=== PATIENT | male | born 1980 | race Asian ===

== ENCOUNTER 2016-08-13 10:09 | Emergency (ER) | payer SELFPAY ==
[~2016-08-13] VITALS: Ht 170.2 cm; Wt 77.1 kg
[2016-08-13 10:09] VITALS: BP 144/86; PULSE 81; RESP 14; TEMP 98; O2SAT 99
--- NOTE | 2016-08-13 10:09 | NUR ---
Placed on cardiac monitor technician, blood pressure machine and pulse oximeter. To gown for exam. Side rails up.
--- NOTE | 2016-08-13 10:09 | NUR ---
ER at bedside examining patient.
--- NOTE | 2016-08-13 10:09 | NUR ---
Patient to ER bed 7 to gown for evaluation. Side rails up. Report given to GRACIA Bunch.
--- NOTE | 2016-08-13 10:10 | NUR ---
BIB BLS,c/o dizzy,headache,active vomiting since this morning. pt A$&O X4, Vomting with clear liquid. diphoretic. no resp distress.
[2016-08-13] MEDS ORDERED: NACL 0.9% 1,000 ML IV ONE ×3 (10:18→12:00)
--- NOTE | 2016-08-13 10:23 | NUR ---
# 20 gauge angiocath placed to lac. Use of asceptic technique. Opsite placed over site. Blood return noted. Blood for lab drawn from site. Flushed with 10 cc of normal saline. No evidence of infiltration noted. Patient tolerated well.
[2016-08-13] MEDS ORDERED: KETOROLAC TROMETHAMINE 30 MG VIAL IVP ONE (10:30)
[2016-08-13] MEDS ORDERED: METOCLOPRAMIDE HCL 10 MG/2 ML VIAL IVP ONE (10:30)
[2016-08-13] MEDS ORDERED: ONDANSETRON HCL 4 MG/2 ML VIAL IVP ONE (10:30)
[2016-08-13] MEDS ORDERED: PROCHLORPERAZINE EDISYLATE 10 MG/2 ML VIAL IVP ONE (10:30)
[2016-08-13] MEDS ORDERED: PROMETHAZINE HCL 25 MG/ML AMP IM ONE (10:30)
[2016-08-13 10:43] LABS: BASOPHILS % (AUTO) 0.6 % (0.0-2.0); EOSINOPHILS # (AUTO) 0.1 K/uL (0.0-0.4); EOSINOPHILS % (AUTO) 1.5 % (0.0-4.0); HEMATOCRIT 51.3 % (36-54); LYMPHOCYTES # (AUTO) 3.7 K/uL (1.0-5.5); LYMPHOCYTES % (AUTO) 44.5 % (20.5-51.5); MEAN CORPUSCULAR HEMOGLOBIN 31 pg (27-31); MEAN CORPUSCULAR HGB CONC 33 % (32-36); MEAN CORPUSCULAR VOLUME 93 fL (79.0-98.0); MONOCYTES # (AUTO) 0.4 K/uL (0.0-1.0); MONOCYTES % (AUTO) 4.5 % (1.7-9.3); NEUTROPHILS % (AUTO) 48.9 % (40.0-70.0); PLATELET COUNT (AUTO) 194 K/uL (130-430); RED BLOOD CELL COUNT(AUTO) 5.54 MIL/uL (4.2-6.2); RED CELL DISTRIBUTION WIDTH 11.2 % (9.0-15.0); WHITE BLOOD COUNT (AUTO) 8.2 K/uL (4.8-10.8)
[2016-08-13 10:47] LABS: CALCIUM 8.6 mg/dL (8.4-11.0); CREATININE 1.18 mg/dL (0.55-1.30); POTASSIUM 3.3 mmol/L (3.5-5.1)
[2016-08-13 10:58] LABS: ALBUMIN 4.2 g/dL (3.4-4.8); TOTAL BILIRUBIN 0.6 mg/dL (0.0-1.0); TOTAL PROTEIN, SERUM 7.6 g/dL (6.4-8.3)
--- NOTE | 2016-08-13 11:10 | NUR ---
transported to Ct scan of head and abdomen via gurney.
[2016-08-13 11:52] LABS: BILIRUBIN,URINE NEGATIVE (NEGATIVE); BLOOD, URINE NEGATIVE (NEGATIVE); CLARITY/URINE CLEAR (CLEAR); COLOR,URINE YELLOW (YELLOW); GLUCOSE,URINE NEGATIVE (NEGATIVE); KETONES,URINE NEGATIVE (NEGATIVE); LEUKOCYTE ESTERASE ,URINE NEGATIVE (NEGATIVE); NITRITE, URINE NEGATIVE (NEGATIVE); PH,URINE 5.5 (5.0-8.0); PROTEIN URINE NEGATIVE (NEGATIVE); UROBILINOGEN,URINE 0.2 (0.2-1.0)
[2016-08-13] MEDS ORDERED: cefTRIAXone 1 GM IVPB PREMIX 50 ML IV ONE (12:00)
[2016-08-13 12:17] LABS: BARBITURATE, URINE NEGATIVE (NEG <=200); BENZODIAZEPINE, URINE NEGATIVE (NEG <=150); CANNABINOID, URINE NEGATIVE (NEG <=50); COCAINE, URINE NEGATIVE (NEG <=150); METHAMPHETAMINES SCREEN,URINE NEGATIVE (NEG <=500); OPIATE, URINE NEGATIVE (NEG <=100); PHENCYCLIDINE SCREEN,URINE NEGATIVE (NEG <=25); UR TRICYCLIC ANTIDEPRESSANTS NEGATIVE (NEG <=300); URINE AMPHETAMINE NEGATIVE (NEG <=500); URINE METHADONE NEGATIVE (NEG <=200); URINE OXYCODONE SCREEN NEGATIVE (NEG <=100); URINE PROPOXYPHENE SCREEN NEGATIVE (NEG <=300)
--- NOTE | 2016-08-13 13:13 | NUR ---
Pt on stable condition, no pain or discomfort noted at this time, VSS.
[2016-08-13 14:11] VITALS: TEMP 98.1
--- NOTE | 2016-08-13 14:46 | NUR ---
pt's girlfriend cell # [phone]
--- NOTE | 2016-08-13 15:08 | NUR ---
pt sleeping in bed,no distress noted.
--- NOTE | 2016-08-13 15:43 | NUR ---
endorsed pt to [facility]
--- NOTE | 2016-08-13 15:45 | NUR ---
Patient calm in bed. Awaiting 3rd lab draw results. No signs of acute distress. Denies N/V, pain at this time. Friend at bedside.
[2016-08-13 15:57] VITALS: BP 129/85; PULSE 59; RESP 20; O2SAT 99
--- NOTE | 2016-08-13 16:00 | NUR ---
Pt resting at this time, respirations even and labored, no N/V noted, VSS WNL.
--- NOTE | 2016-08-13 16:40 | NUR ---
Patient was offered admission by Dr. Maher. Patient states that there is nothing that wrong with him. He wants to go home and take tylenol. Patient is walking with unsteady gait, using river to stay up. Patient was advised that he is at high risk for self injury. Patient does not wish to proceed with medical care recommended by Dr. Maher. Patient given information related to possible complications, up to and including , which could occur as a result of leaving hospital at this time. Patient verbalizes understanding of risks involved leaving against medical advice. Patient has signed AMA form. Patient refused WC to car. Ambulated to car driven by significant other. Jack GRULLON assisted patient to car.
== END 2016-08-13 16:40 | disposition left against medical advice (07) ==
LOC: SED 10:09
DX: K52.9 Noninfective gastroenteritis and colitis, unspecified (principal); E87.2 Acidosis; R03.0 Elevated blood-pressure reading, without diagnosis of hypertension
CPT/HCPCS: 36415; 70450; 74176; 80053; 80307; 81003; 82150; 83605; 83690; 85025; 87040; 96361; 96365; 96375; 99285; J0696; J0780; J1885; J2405; J2550; J2765; J7030